=== PATIENT | female | born 1945 | race Caucasian/White ===

== ENCOUNTER → 2016-09-06 | Outpatient (CLI) | payer MEDICARE, OTHER ==
[~2016-09-06] MED LIST: ACETAMINOPHEN PO; ARIXTRA10 MG/0.8 SQ; CALCIUM + D 6001 TA1 PO; CIPRO XR 500 M500 MG PO; CO Q-1010 MG PO; CO Q-10300 MG PO; COUMADIN5 MG PO; CRESTOR10 MG PO; FLONASE16 GM; FUROSEMIDE40 MG PO; GABAPENTIN400 M2 PO; GABAPENTIN400 MG PO; GLUCOPHAGE XR500 MG PO; GLUCOPHAGE500 MG PO; HCTZ PO; MELOXICAM15 MG PO; METFORMIN PO; MOBIC15 MG PO; MONTELUKAST SOD10 MG PO; MOTION RELIEF25 MG PO; MULTI-DAY VITAM1 TAB PO; PRAVASTATIN SOD40 MG PO; PRILOSEC; PRILOSEC20 MG PO; PROAIR HFA8.5 GM INH; SERTRALINE HCL100 MG PO; VITAMIN A AND D PO; VITAMIN A10000 UNIT PO; VITAMIN D1000 UNI1 PO; VYTORIN 10/40 T1 TAB PO; ZOLOFT PO
[2016-09-06 16:08] LABS: URINE APPEARANCE CLEAR; URINE BILIRUBIN NEG (NEG); URINE BLOOD NEG (NEG); URINE COLOR YELLOW; URINE GLUCOSE NEG (NEG); URINE KETONE NEG (NEG); URINE LEUKOCYTE ESTERASE 3+ (NEG); URINE NITRATE NEG (NEG); URINE PROTEIN NEG (NEG); URINE SPECIFIC GRAVITY 1.026 (1.003-1.035); URINE UROBILINOGEN 0.2 MG/DL (NEG)
[2016-09-06 16:11] LABS: CULTURE INDICATED? YES; URBCS1 AUWI 0-2 /[HPF] (0-2); URINE BACTERIA AUWI NEG (NEGATIVE); URINE SOURCE CLEAN CATCH; URINE SQUAMOUS EPITHELIAL CELL NONE SEEN /[HPF]; UWBCS1 AUWI 50-100 (0-5)
== END | disposition home or self-care (01) ==
LOC: CLAB 15:50
PROVIDERS: Nurse Practitioner
DX: R10.31 Right lower quadrant pain (principal); R10.32 Left lower quadrant pain
CPT/HCPCS: 81003; 87086